=== PATIENT | male | born 2000 | race Caucasian/White ===

== ENCOUNTER 2022-05-27 13:28 | Emergency (ER) | payer SELFPAY ==
[~2022-05-27] VITALS: Ht 177.8 cm; Wt 76.0 kg
[2022-05-27] MEDS ORDERED: IBUPROFEN 600MG TABLET PO STA (16:46)
[2022-05-27 17:15] LABS: BASOPHILS % 0.2 % (0.0-2.0); EOSINOPHILS % 1.5 % (0.0-5.0); HEMATOCRIT. 43.9 % (42.0-52.0); MEAN CORPUSCULAR HEMOGLOBIN 29.6 pg (28.0-32.0); MEAN CORPUSCULAR VOLUME 86.4 fL (80.0-94.0); MEAN PLATELET VOLUME 7.6 fl (7.4-10.4); MONOCYTES % 7.8 % (2.0-8.0); NEUTROPHILS % 55.5 % (40.0-76.0); PLATELET 218 x1000/uL (130-400); RED BLOOD CELL COUNT 5.08 mill/uL (4.7-6.1)
[2022-05-27 17:38] LABS: CLARITY URINE CLEAR (CLEAR); COLOR URINE YELLOW (YELLOW); KETONES URINE NEGATIVE (NEGATIVE); LEUKOCYTE ESTERASE URINE NEGATIVE (NEGATIVE); NITRITE URINE NEGATIVE (NEGATIVE); OCCULT BLOOD URINE NEGATIVE (NEGATIVE); PROTEIN URINE NEGATIVE (NEGATIVE); SPECIFIC GRAVITY URINE 1.031 (1.005-1.030); UROBILINOGEN URINE 0.2 E.U./dL (0.2-1.0)
[2022-05-27 17:40] LABS: CHLORIDE 106 mEq/L (98-107)
[2022-05-27] MEDS ORDERED: IBUP-2028 MT (18:58)
[2022-05-27] MEDS ORDERED: TAMS-11 MT (18:58)
[2022-05-27 19:07] VITALS: BP 105/52
== END 2022-05-27 19:08 | disposition home or self-care (01) ==
LOC: ER 13:28
DX: N20.0 Calculus of kidney (principal)
CPT/HCPCS: 36415; 76700; 80053; 81003; 85025; 99284

== ENCOUNTER 2022-12-15 14:55 | Emergency (ER) | payer MEDICAID ==
[~2022-12-15] VITALS: Ht 180.3 cm; Wt 154.0 kg
[~2022-12-15 14:55] MED LIST: IBUP-2028 MT; TAMS-11 MT
[2022-12-15 15:40] VITALS: O2SAT 99
[2022-12-15] MEDS ORDERED: IBUPROFEN 600MG TABLET PO ONE (20:15)
[2022-12-15 20:45] VITALS: BP 107/73
[2022-12-15] MEDS ORDERED: IBUP-2029 MT (20:56)
[2022-12-15 21:13] VITALS: PULSE 54; RESP 18; TEMP 98.4
== END 2022-12-15 21:10 | disposition home or self-care (01) ==
LOC: ER 14:55
DX: S50.01XA Contusion of right elbow, initial encounter (principal); S80.01XA Contusion of right knee, initial encounter; V49.9XXA Car occupant (driver) (passenger) injured in unspecified traffic accident, initial encounter; Y93.89 Activity, other specified; Y92.89 Other specified places as the place of occurrence of the external cause; Y99.8 Other external cause status
CPT/HCPCS: 73080; 73560; 99284

== ENCOUNTER 2023-09-22 11:16 | Emergency (ER) | payer MEDICAID ==
[~2023-09-22] VITALS: Ht 180.3 cm; Wt 75.0 kg
[~2023-09-22 11:16] MED LIST changes: +IBUP-2029 MT
[2023-09-22 11:20] VITALS: O2SAT 99
[2023-09-22 12:32] LABS: BASOPHILS % 0.1 % (0.0-2.0); EOSINOPHILS % 1.2 % (0.0-5.0); HEMATOCRIT. 43.8 % (42.0-52.0); HEMOGLOBIN. 15.2 g/dL (14.0-18.0); LYMPHOCYTES % 30.4 % (20.0-50.0); MEAN CORPUSCULAR HEMOGLOBIN 29.7 pg (28.0-32.0); MEAN CORPUSCULAR HGB CONC 34.6 g/dL (31.0-37.0); MEAN CORPUSCULAR VOLUME 85.8 fL (80.0-94.0); MEAN PLATELET VOLUME 7.8 fl (7.4-10.4); MONOCYTES % 7.7 % (2.0-8.0); NEUTROPHILS % 60.6 % (40.0-76.0); PLATELET 178 x1000/uL (130-400); RED CELL DISTRIBUTION WIDTH 13.3 % (11.6-14.6); WHITE BLOOD COUNT 6.8 x1000/uL (4.5-11.0)
[2023-09-22] MEDS: ONDANSETRON HCL 4MG/2ML INJ IV STA (13:12)
[2023-09-22] MEDS: MORPHINE SULFATE 4 MG/ML INJ (FOR IV/IM USE) IV STA (13:12)
[2023-09-22] MEDS: SODIUM CHLORIDE 0.9% 1,000 ML IV ONE (13:12)
[2023-09-22 13:13] LABS: ALANINE AMINOTRANSFERASE 20 IU/L (10-49); ALBUMIN 4.9 g/dL (3.2-4.8); ASPARTATE AMINOTRANSFERASE 27 IU/L (<34); CARBON DIOXIDE 29 mEq/L (21-32); CHLORIDE 104 mEq/L (98-107); CREATININE 1.1 mg/dL (0.6-1.3); GLUCOSE 84 mg/dL (70-105); POTASSIUM 4.2 mEq/L (3.5-5.1); SODIUM 138 mEq/L (136-145); UREA NITROGEN BLOOD 12 mg/dL (9-23)
[2023-09-22 13:23] LABS: CLARITY URINE CLEAR (CLEAR); COLOR URINE YELLOW (YELLOW); GLUCOSE URINE NEGATIVE (NEGATIVE); KETONES URINE NEGATIVE (NEGATIVE); LEUKOCYTE ESTERASE URINE NEGATIVE (NEGATIVE); NITRITE URINE NEGATIVE (NEGATIVE); OCCULT BLOOD URINE NEGATIVE (NEGATIVE); PH URINE 7.5 (4.5-8.0); PROTEIN URINE NEGATIVE (NEGATIVE); SPECIFIC GRAVITY URINE 1.022 (1.005-1.030)
[2023-09-22 17:28] VITALS: BP 113/70; PULSE 71; RESP 18; TEMP 98.2
== END 2023-09-22 17:47 | disposition home or self-care (01) ==
LOC: ER 11:54
DX: R10.31 Right lower quadrant pain (principal)
CPT/HCPCS: 80053; 81003; 83690; 85025; 36415; 74177; 96361; 96374; 96375; 99285; J2405; J2270; J7030; Z7610 ×2

== ENCOUNTER 2025-06-14 20:32 | Emergency (ER) | payer MEDICAID, OTHER ==
[~2025-06-14] VITALS: Ht 175.3 cm; Wt 70.2 kg
[~2025-06-14 20:32] MED LIST changes: +IBUP-1455 MT; -IBUP-2029 MT; -TAMS-11 MT; +TAMS-54 MT
[2025-06-14 20:33] VITALS: TEMP 36.8; O2SAT 100
[2025-06-14] MEDS ORDERED: TOPUD MT (22:02)
[2025-06-14] MEDS ORDERED: VALA100044 MT (22:02)
[2025-06-14] MEDS ORDERED: IBUP-2028 MT (22:02)
[2025-06-14 22:19] VITALS: TEMP 98.2
[2025-06-14] MEDS: ACETAMINOPHEN 325MG TABLET PO ONE (22:19)
[2025-06-14] MEDS: IBUPROFEN 600MG TABLET PO ONE (22:19)
[2025-06-14 22:58] VITALS: BP 110/62; PULSE 54; RESP 15; O2SAT 99
== END 2025-06-14 23:04 | disposition home or self-care (01) ==
LOC: ER 20:32
DX: B02.9 Zoster without complications (principal); Z79.624 Long term (current) use of inhibitors of nucleotide synthesis; Z79.899 Other long term (current) drug therapy
CPT/HCPCS: 99283